=== PATIENT | male | born 1955 | race Caucasian/White ===

== ENCOUNTER 2016-08-23 20:45 | Emergency (ER) | payer BC ==
--- NOTE | 2016-08-23 21:06 | ED.ADGEN ---
Adult General Chief Complaint Chief Complaint Jaundice HPI HPI Patient is a 66 year old male who presents with jaundice. 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 He states during surgery developed acute renal failure and was hospitalized for several days. He is noticing swelling of his abdomen and his legs ever since that procedure and is been taking Lasix trying to remove this fluid. He states over the last 2 days he 's noticed his skin turning yellow. He denies any fevers chills nausea vomiting abdominal pain. He states he's just more tired than normal. According to his daughter he had to get FFP during his procedure in June secondary to an elevated INR. He denies any blood thinners. He states he doesn't drink he hasn' t drank anything in 5 years and prior to that he might have a sixpack a month. He states his primary care physician has been working him up for any liver issues and currently can't find anything wrong. Review of Systems Review of Systems Constitutional: Denies fever or chills [] Eyes: Denies change in visual acuity, redness, or eye pain [] HENT: Denies nasal congestion or sore throat [] Respiratory: Denies cough or shortness of breath [] Cardiovascular: No additional information not addressed in HPI [] GI: Denies abdominal pain, nausea, vomiting, bloody stools or diarrhea [] : Denies dysuria or hematuria [] Musculoskeletal: Denies back pain or joint pain [] Integument: Denies rash or skin lesions [] Neurologic: Denies headache, focal weakness or sensory changes [] Endocrine: Denies polyuria or polydipsia [] Current Medications Current Medications Current Medications Medications (Trade) Dose Ordered Sig/[facility] Start Time Stop Time Status Last Admin Dose Admin Potassium Chloride 100 ml @ 100 mls/hr Q1H 08/24/16 00:00 08/24/16 03:59 08/24/16 01:00 100 MLS/HR Allergies Allergies Allergies Coded Allergies Type Severity Reaction Last Updated Verified Unable to Assess 08/24/16 No Physical Exam Physical Exam Constitutional: Well developed, well nourished, no acute distress, non-toxic appearance. [] HENT: Normocephalic, atraumatic, bilateral external ears normal, oropharynx moist, no oral exudates, nose normal. [] Eyes: PERRLA, EOMI, conjunctiva normal, no discharge. [] Neck: Normal range of motion, no tenderness, supple, no stridor. [] Cardiovascular:Heart rate regular rhythm, no murmur [] Lungs & Thorax: Bilateral breath sounds clear to auscultation [] Abdomen: Bowel sounds normal, soft, no tenderness, no masses, no pulsatile masses. Distended abdomen with edema to mid abdomen Skin: Warm, dry, no erythema, no rash jaundiced appearing. [] Back: No tenderness, no CVA tenderness. [] Extremities: No tenderness, no cyanosis, no clubbing, ROM intact, plus bilateral lower extremity edema. Neurologic: Alert and oriented X 3, normal motor function, normal sensory function, no focal deficits noted. [] Psychologic: Affect normal, judgement normal, mood normal. [] Current Patient Data Vital Signs Vital Signs Date Time Temp Pulse Resp B/P (MAP) Pulse Ox O2 Delivery O2 Flow Rate FiO2 08/23/16 21:00 97.7 107 20 94 Room Air Lab Results Laboratory Tests Test 08/23/16 22:25 08/23/16 22:30 White Blood Count 10.6 x10^3/uL (4.0-11.0) Red Blood Count 4.50 x10^6/uL (4.30-5.70) Hemoglobin 12.4 g/dL (13.0-17.5) L Hematocrit 37.6 % (39.0-53.0) L Mean Corpuscular Volume 84 fL (79-100) Mean Corpuscular Hemoglobin 28 pg (25-35) Mean Corpuscular Hemoglobin Concent 33 g/dL (31-37) Red Cell Distribution Width 18.5 % (11.5-14.5) H Platelet Count 67 x10^3/uL (140-400) L Neutrophils (%) (Auto) 74 % (31-73) H Lymphocytes (%) (Auto) 11 % (24-48) L Monocytes (%) (Auto) 14 % (0-9) H Eosinophils (%) (Auto) 1 % (0-3) Basophils (%) (Auto) 0 % (0-3) Neutrophils # (Auto) 7.9 x10^3uL (1.8-7.7) H Lymphocytes # (Auto) 1.2 x10^3/uL (1.0-4.8) Monocytes # (Auto) 1.4 x10^3/uL (0.0-1.1) H Eosinophils # (Auto) 0.1 x10^3/uL (0.0-0.7) Basophils # (Auto) 0.0 x10^3/uL (0.0-0.2) Platelet Estimate Decreased (ADEQUATE) Giant Platelets Occ Prothrombin Time 23.2 SEC (9.4-11.4) H Prothrombin Time INR 2.3 (0.9-1.1) H PTT 37 SEC (23-33) H Sodium Level 129 mmol/L (136-145) L Potassium Level 3.1 mmol/L (3.5-5.1) L Chloride Level 91 mmol/L (98-107) L Carbon Dioxide Level 25 mmol/L (21-32) Anion Gap 13 (6-14) Blood Urea Nitrogen 61 mg/dL (8-26) H Creatinine 2.5 mg/dL (0.7-1.3) H Estimated GFR (Cockcroft-Gault) 26.4 Glucose Level 119 mg/dL (70-99) H Calcium Level 8.5 mg/dL (8.5-10.1) Magnesium Level 2.3 mg/dL (1.8-2.4) Total Bilirubin 8.1 mg/dL (0.2-1.0) H Direct Bilirubin 6.1 mg/dL (0.0-0.2) H Aspartate Amino Transferase (AST) 176 U/L (15-37) H Alanine Aminotransferase (ALT) 49 U/L (16-63) Alkaline Phosphatase 151 U/L (46-116) H Creatine Kinase 177 U/L (39-308) Creatine Kinase MB (Mass) 7.1 ng/mL (0.0-3.6) H Creatine Kinase MB Relative Index 4.0 % (0-4) Total Protein 6.9 g/dL (6.4-8.2) Albumin 2.5 g/dL (3.4-5.0) L Lipase 285 U/L (73-393) Urine Collection Type Unknown Urine Color Yellow Urine Clarity Hazy Urine pH 5.5 Urine Specific [place] 1.010 Urine Protein Neg (NEG-TRACE) Urine Glucose (UA) Neg mg/dL (NEG) Urine Ketones (Stick) Neg mg/dL (NEG) Urine Blood Mod (NEG) Urine Nitrite Neg (NEG) Urine Bilirubin Neg (NEG) Urine Urobilinogen Dipstick 1 mg/dL (0.2 mg/dL) Urine Leukocyte Esterase Small (NEG) Urine RBC 6-10 /HPF (0-2) Urine WBC 20-40 /HPF (0-4) Urine Squamous Epithelial Cells None /LPF Urine Bacteria 0 /HPF (0-FEW) Urine Hyaline Casts Mod /HPF Urine Mucus Marked /LPF EKG EKG [] Radiology/Procedures Radiology/Procedures [] Course & Med Decision Making Course & Med Decision Making Pertinent Labs and Imaging studies reviewed. (See chart for details) His potassium is low with a sodium. He is getting potassium replacement and magnesium is pending in the lab at this time. His INR is elevated in addition to his total bili. Spoke with his primary care physician is Dr. Solano has seen him in the past. We'll admit him to Dr. Palma at [facility] and consult Dr. Hills. Patient's agreeable plans in stable condition at this time. Final Impression Final Impression Hyperbilirubinemia Hypokalemia Hyponatremia Acute renal failure Elevated INR Ascites Anasarca Problems: Dragon Disclaimer Dragon Disclaimer This electronic medical record was generated, in whole or in part, using a voice recognition dictation system. ROBERTA HOANG MD August 23, 2016 21:06
[2016-08-23 22:45] LABS: BILIRUBIN,URINE NEG (NEG); CLARITY,URINE HAZY; COLOR,URINE YELLOW; GLUCOSE,URINE NEG (NEG)
[2016-08-23 22:46] LABS: NITRITE,URINE NEG (NEG); UROBILINOGEN,URINE 1 mg/dL (0.2 mg/dL)
[2016-08-23 22:48] LABS: BASO % 0 % (0-3); EOS # 0.1 x10^3/uL (0.0-0.7); EOS % 1 % (0-3); HEMATOCRIT 37.6 % (39.0-53.0); HEMOGLOBIN 12.4 g/dL (13.0-17.5); LYMPH # 1.2 x10^3/uL (1.0-4.8); LYMPH % 11 % (24-48); MEAN CORPUSCULAR HEMOGLOBIN 28 pg (25-35); MEAN CORPUSCULAR HGB CONC 33 g/dL (31-37); MEAN CORPUSCULAR VOLUME 84 fL (79-100); MONO # 1.4 x10^3/uL (0.0-1.1); MONO % 14 % (0-9); NEUT # 7.9 x10^3uL (1.8-7.7); NEUT % 74 % (31-73); PLATELET COUNT 67 x10^3/uL (140-400); RED CELL DISTRIBUTION WIDTH 18.5 % (11.5-14.5); WHITE BLOOD COUNT 10.6 x10^3/uL (4.0-11.0)
[2016-08-23 22:52] LABS: BACTERIA,URINE 0 /HPF (0-FEW); WBC,URINE 20-40 /HPF (0-4)
[2016-08-23 22:53] LABS: HYALINE CASTS, URINE MOD /HPF
[2016-08-23 23:05] LABS: ALBUMIN 2.5 g/dL (3.4-5.0); CALCIUM 8.5 mg/dL (8.5-10.1); CREATININE 2.5 mg/dL (0.7-1.3); DIRECT BILIRUBIN 6.1 mg/dL (0.0-0.2); GFR 26.4; POTASSIUM 3.1 mmol/L (3.5-5.1); TOTAL BILIRUBIN 8.1 mg/dL (0.2-1.0); TOTAL PROTEIN 6.9 g/dL (6.4-8.2)
[2016-08-23 23:30] LABS: PLT ESTIMATE DECREASED (ADEQUATE)
[2016-08-24] MEDS: POTASSIUM CHLORIDE 10MEQ 100 ML IV SCH ×2 (01:00)
[2016-08-24 01:20] VITALS: BP 112/90
== END 2016-08-24 01:40 | disposition short-term general hospital (02) ==
LOC: ER 20:48
DX: R17 Unspecified jaundice (principal); E87.6 Hypokalemia; E87.1 Hypo-osmolality and hyponatremia; N17.9 Acute kidney failure, unspecified; R18.8 Other ascites; R60.1 Generalized edema; R79.1 Abnormal coagulation profile
CPT/HCPCS: 36415; 80048; 80076; 81001; 82553; 83690; 83735; 85008; 85027; 85610; 85730; 87086; 96365; 96366; 99285; J3480